=== PATIENT | female | born 1995 | race Caucasian/White ===

== ENCOUNTER 2020-07-15 02:46 | Emergency (ER) | payer SELFPAY ==
[~2020-07-15] VITALS: Ht 188 cm; Wt 65.8 kg
[2020-07-15 02:46] VITALS: BP 131/86
== END 2020-07-15 03:28 | disposition home or self-care (01) ==
LOC: ER 03:01
DX: R00.2 Palpitations (principal); F41.9 Anxiety disorder, unspecified